=== PATIENT | male | born 1995 | race Caucasian/White ===

== ENCOUNTER 2021-04-03 09:18 | Emergency (ER) | payer OTHER ==
[~2021-04-03] VITALS: Ht 180.3 cm; Wt 59.0 kg
[2021-04-03] MEDS ORDERED: ODEFSEY TABLET1 EACH (09:26)
== END 2021-04-03 12:21 | disposition home or self-care (01) ==
LOC: ER 09:18
DX: L02.416 Cutaneous abscess of left lower limb (principal); B95.61 Methicillin susceptible Staphylococcus aureus infection as the cause of diseases classified elsewhere

== ENCOUNTER 2021-05-28 19:45 | Emergency (ER) | payer OTHER ==
[~2021-05-28] VITALS: Ht 180.3 cm; Wt 59.0 kg
[~2021-05-28 19:45] MED LIST: ODEFSEY TABLET1 EACH
[2021-05-28] MEDS ORDERED: DICLOFENAC SODI75 MG PO (20:42)
[2021-05-28] MEDS ORDERED: BACTRIM DS TAB1 EACH PO (20:42)
== END 2021-05-28 20:56 | disposition home or self-care (01) ==
LOC: ER 19:45
DX: L02.415 Cutaneous abscess of right lower limb (principal)

== ENCOUNTER 2021-09-05 12:49 | Inpatient (IN) | payer OTHER ==
[~2021-09-05] VITALS: Ht 180.3 cm; Wt 59.0 kg
[~2021-09-05 12:49] MED LIST changes: +BACTRIM DS TAB1 EACH PO; +DICLOFENAC SODI75 MG PO
[2021-09-08] MEDS ORDERED: PROTONIX40 MG PO (07:26)
[2021-09-08] MEDS ORDERED: AMOX1TAB5 PO (07:26)
[2021-09-08] MEDS ORDERED: ULTRAM50 MG PO (07:31)
== END 2021-09-08 10:09 | disposition home or self-care (01) | DRG 343 ==
LOC: ER 12:49 → SURH 09-06 02:11
PROVIDERS: ADMIT Surgery; ATTEND Surgery
PROC: 0DTJ0ZZ Resection of Appendix, Open Approach (ICD-10-PCS; principal; 2021-09-06 07:00)
DX: K35.891 Other acute appendicitis without perforation, with gangrene (principal); Z20.822 Contact with and (suspected) exposure to COVID-19

== ENCOUNTER 2021-11-06 00:38 | Emergency (ER) | payer OTHER ==
[~2021-11-06] VITALS: Ht 180.3 cm; Wt 59.0 kg
[~2021-11-06 00:38] MED LIST changes: +AMOX1TAB5 PO; +PROTONIX40 MG PO; +ULTRAM50 MG PO
[2021-11-06] MEDS ORDERED: ZITHROMAX200 MG PO (02:14)
== END 2021-11-06 02:20 | disposition home or self-care (01) ==
LOC: ER 00:38
DX: J45.901 Unspecified asthma with (acute) exacerbation (principal); B20 Human immunodeficiency virus [HIV] disease; Z20.822 Contact with and (suspected) exposure to COVID-19

== ENCOUNTER 2022-03-24 14:21 | Emergency (ER) | payer OTHER ==
[~2022-03-24] VITALS: Ht 180.3 cm; Wt 59.0 kg
[~2022-03-24 14:21] MED LIST changes: +ZITHROMAX200 MG PO
[2022-03-24] MEDS ORDERED: ODEFSEY TABLET1 EACH PO (14:44)
== END 2022-03-24 19:13 | disposition home or self-care (01) ==
LOC: ER 14:21
DX: R10.9 Unspecified abdominal pain (principal)

== ENCOUNTER 2022-09-20 09:50 | Emergency (ER) | payer OTHER ==
[~2022-09-20] VITALS: Ht 180.3 cm; Wt 59.9 kg
[~2022-09-20 09:50] MED LIST changes: +ODEFSEY TABLET1 EACH PO
== END 2022-09-20 13:08 | disposition home or self-care (01) ==
LOC: ER 09:50
DX: L29.8 Other pruritus (principal); R21 Rash and other nonspecific skin eruption; F41.8 Other specified anxiety disorders

== ENCOUNTER 2023-01-03 11:03 | Emergency (ER) | payer OTHER ==
[~2023-01-03] VITALS: Ht 180.3 cm; Wt 63.5 kg
== END 2023-01-03 14:45 | disposition home or self-care (01) ==
LOC: ER 11:03
DX: J10.1 Influenza due to other identified influenza virus with other respiratory manifestations (principal); B34.9 Viral infection, unspecified; R53.81 Other malaise; Z20.822 Contact with and (suspected) exposure to COVID-19; Z21 Asymptomatic human immunodeficiency virus [HIV] infection status

== ENCOUNTER 2023-01-05 02:11 | Emergency (ER) | payer OTHER ==
[~2023-01-05] VITALS: Ht 180.3 cm; Wt 63.5 kg
== END 2023-01-05 05:04 | disposition home or self-care (01) ==
LOC: ER 02:11
DX: J06.9 Acute upper respiratory infection, unspecified (principal)

== ENCOUNTER 2023-06-25 08:36 | Emergency (ER) | payer OTHER ==
[~2023-06-25] VITALS: Ht 170.2 cm; Wt 63.0 kg
[2023-06-25 09:28] LABS: HEMATOCRIT 41.4 % (39.0-48.0); HEMOGLOBIN 14.5 g/dL (13-16.00); MEAN CELL VOLUME 87.2 fL (80.0-100.00); MEAN CORPUSCULAR HEMOGLOBIN 30.5 pg (27.00-32.0); MEAN CORPUSCULAR HGB CONC 34.9 g/dl (32.0-36.0); PLATELET COUNT 268 K/uL (150-450); RED BLOOD COUNT 4.74 M/uL (4.00-6.00); RED CELL DISTRIBUTION WIDTH 13.1 % (11.5-14.5)
[2023-06-25 09:43] LABS: PH,URINE 6.5; URINE BLOOD LARGE; URINE GLUCOSE NEGATIVE (NEGATIVE); URINE LEUKOCYTE NEGATIVE; URINE NITRATE POSITIVE
[2023-06-25 09:49] LABS: URINE APPEARANCE BLOODY; URINE BILIRRUBIN MODERATE (NEGATIVE); URINE COLOR RED; URINE PROTEIN 100 (NEGATIVE)
[2023-06-25 09:50] LABS: URINE MUCUS MODERATE; URINE RBC LOADED /HPF
[2023-06-25 09:51] LABS: URINE WBC 0-2 /hpf
[2023-06-25 09:52] LABS: URINE EPITHELIAL CELLS 0-4 /HPF
[2023-06-25 09:53] LABS: URINE BACTERIA FEW
[2023-06-25 10:02] LABS: CALCIUM 9.1 mg/dL (8.5-10.1); CREATININE SERUM 1.14 mg/dL (0.70-1.30); GFR 75.94; POTASSIUM 3.9 mEq/L (3.5-5.1)
== END 2023-06-25 11:09 | disposition home or self-care (01) ==
LOC: ER
PROVIDERS: General Practice
DX: N34.2 Other urethritis (principal); B20 Human immunodeficiency virus [HIV] disease

== ENCOUNTER 2023-12-26 09:14 | Emergency (ER) | payer OTHER ==
[~2023-12-26] VITALS: Ht 180.3 cm; Wt 59.0 kg
[2023-12-26] MEDS ORDERED: RINGERS SOLUTION,LACTATED 1,000 ML IV STA (10:01)
[2023-12-26] MEDS ORDERED: 0.9 % SODIUM CHLORIDE 1,000 ML IV STA (10:02)
[2023-12-26] MEDS ORDERED: FAMOtidine 10 MG/ML (4ML VIAL) IV STA (10:04)
[2023-12-26] MEDS ORDERED: ONDANSETRON HCL 2 MG/ML VIAL IV ONE (10:15)
[2023-12-26 10:32] LABS: HEMATOCRIT 38.7 % (39.0-48.0); HEMOGLOBIN 13.8 g/dL (13-16.00); MEAN CORPUSCULAR HEMOGLOBIN 30.7 pg (27.00-32.0); MEAN CORPUSCULAR HGB CONC 35.7 g/dl (32.0-36.0); PLATELET COUNT 240 K/uL (150-450); RED BLOOD COUNT 4.51 M/uL (4.00-6.00); RED CELL DISTRIBUTION WIDTH 12.8 % (11.5-14.5)
[2023-12-26 10:53] LABS: ALBUMIN 3.7 gm/dL (3.4-5.0); BILIRUBIN TOTAL 0.5 mg/dL (0.3-1.2); BILIRUBIN,CONJUGATED 0.14 mg/dL (0.0-0.2); BILIRUBIN,UNCONJUGATED 0.36 mg/dL (0.0-0.6); CALCIUM 8.8 mg/dL (8.5-10.1); CREATININE SERUM 1.23 mg/dL (0.70-1.30); GFR 69.57; POTASSIUM 3.79 mEq/L (3.5-5.1); TOTAL PROTEIN 7.7 gm/dL (6.4-8.2)
[2023-12-26] MEDS ORDERED: METRONIDAZOLE/SODIUM CHLORIDE 500 MG/100 ML PIGGYBACK IV ONE (14:30)
[2023-12-26] MEDS ORDERED: CIPROFLOXACIN IN 5 % DEXTROSE 200 MG/100 ML PIGGYBAG IV ONE (14:30)
== END 2023-12-26 14:37 | disposition home or self-care (01) ==
LOC: ER 09:15
PROVIDERS: General Practice
DX: K52.89 Other specified noninfective gastroenteritis and colitis (principal); Z20.822 Contact with and (suspected) exposure to COVID-19

== ENCOUNTER → 2024-03-08 | Emergency (ER) | payer OTHER ==
[~2024-03-08] VITALS: Ht 180.3 cm; Wt 61.2 kg
[~2024-03-08] MED LIST changes: +FAMOTIDINE/PF 20 MG/2 ML VIAL IV PUSH STA; +FAMOTIDINE/PF 20 MG/2 ML VIAL ONE
[2024-03-08 11:32] LABS: HEMOGLOBIN 12.7 g/dL (13-16.00); MEAN CELL VOLUME 87.9 fL (80.0-100.00); MEAN CORPUSCULAR HEMOGLOBIN 30.1 pg (27.00-32.0); MEAN CORPUSCULAR HGB CONC 34.2 g/dl (32.0-36.0); PLATELET COUNT 272 K/uL (150-450); RED BLOOD COUNT 4.21 M/uL (4.00-6.00); RED CELL DISTRIBUTION WIDTH 13.3 % (11.5-14.5)
[2024-03-08 12:12] LABS: ALBUMIN 3.7 gm/dL (3.4-5.0); BILIRUBIN TOTAL 0.47 mg/dL (0.3-1.2); CALCIUM 9.1 mg/dL (8.5-10.1); CREATININE SERUM 1.06 mg/dL (0.70-1.30); GFR 82.6; GLOBULINA 3.8 G/DL (2.4-3.5); POTASSIUM 4.38 mEq/L (3.5-5.1); TOTAL PROTEIN 7.5 gm/dL (6.4-8.2)
== END | disposition home or self-care (01) ==
LOC: ER 09:26
PROVIDERS: General Practice
DX: K29.70 Gastritis, unspecified, without bleeding (principal)

== ENCOUNTER 2024-04-06 04:31 | Emergency (ER) | payer OTHER ==
[~2024-04-06] VITALS: Ht 180.3 cm; Wt 61.2 kg
[~2024-04-06 04:31] MED LIST changes: -FAMOTIDINE/PF 20 MG/2 ML VIAL IV PUSH STA; -FAMOTIDINE/PF 20 MG/2 ML VIAL ONE
[2024-04-06] MEDS ORDERED: PROMETHAZINE HCL 50 MG/ML AMPUL IM STA (05:30)
[2024-04-06] MEDS ORDERED: HYOSCYAMINE SULFATE 0.125 MG TAB.SUBL SL STA (05:30)
[2024-04-06] MEDS ORDERED: LACTOBACILLUS ACIDOPHILUS 1 CAP CAP PO STA (05:32)
[2024-04-06] MEDS ORDERED: FAMOTIDINE/PF 20 MG/2 ML VIAL IV PUSH STA (05:32)
[2024-04-06] MEDS ORDERED: POTASSIUM CHLORIDE/NACL 0.9% 1,000 ML IV ONE (05:45)
[2024-04-06 05:55] LABS: HEMATOCRIT 38.4 % (39.0-48.0); HEMOGLOBIN 13.5 g/dL (13-16.00); MEAN CELL VOLUME 87.7 fL (80.0-100.00); MEAN CORPUSCULAR HEMOGLOBIN 30.8 pg (27.00-32.0); MEAN CORPUSCULAR HGB CONC 35.1 g/dl (32.0-36.0); PLATELET COUNT 261 K/uL (150-450); RED BLOOD COUNT 4.37 M/uL (4.00-6.00)
[2024-04-06 06:20] LABS: PH,URINE >= 9.0 (5.0-8.0); URINE APPEARANCE Clear; URINE BILIRRUBIN Negative (NEGATIVE); URINE BLOOD Negative; URINE COLOR Dark Yellow; URINE GLUCOSE Negative (NEGATIVE); URINE LEUKOCYTE Negative; URINE NITRATE Negative; URINE PROTEIN 30 (NEGATIVE)
[2024-04-06 06:22] LABS: URINE BACTERIA 7.5 uL (0.0-1933); URINE EPITHELIAL CELLS 2.1 uL (0.0-38.8); URINE RBC 16.3 uL (0.0-20.8); URINE WBC 4.4 uL (0.0-23.2)
[2024-04-06 06:26] LABS: URINE KETONE 40 (NEGATIVE)
[2024-04-06 06:41] LABS: CALCIUM 8.9 mg/dL (8.5-10.1); CREATININE SERUM 1.18 mg/dL (0.70-1.30); GFR 72.98; POTASSIUM 4.21 mEq/L (3.5-5.1)
[2024-04-06] MEDS ORDERED: CIPROFLOXACIN IN 5 % DEXTROSE 400 MG/200 ML PIGGYBAG IV STA (07:32)
[2024-04-06] MEDS ORDERED: ONDANSETRON HCL 2 MG/ML VIAL IV ONE (14:00)
== END 2024-04-06 14:13 | disposition home or self-care (01) ==
LOC: ER 04:32
PROVIDERS: General Practice
DX: R19.7 Diarrhea, unspecified (principal); R11.0 Nausea

== ENCOUNTER 2024-09-10 09:02 | Emergency (ER) | payer OTHER ==
[~2024-09-10] VITALS: Ht 180.3 cm; Wt 62.1 kg
[2024-09-10] MEDS ORDERED: FAMOtidine 10 MG/ML (4ML VIAL) IV ONE (10:45)
[2024-09-10] MEDS ORDERED: METRONIDAZOLE/SODIUM CHLORIDE 500 MG/100 ML PIGGYBACK IV ONE ×2 (10:45→10:51)
[2024-09-10] MEDS ORDERED: CIPROFLOXACIN IN 5 % DEXTROSE 400 MG/200 ML PIGGYBAG IV ONE ×2 (10:45→10:50)
[2024-09-10] MEDS ORDERED: 0.9 % SODIUM CHLORIDE 1,000 ML IV ONE (10:45)
[2024-09-10] MEDS ORDERED: ONDANSETRON HCL 2 MG/ML VIAL IV ONE (10:45)
[2024-09-10] MEDS ORDERED: ONDANSETRON HCL 2 MG/ML VIAL ONE (10:50)
[2024-09-10] MEDS ORDERED: FAMOTIDINE/PF 20 MG/2 ML VIAL ONE (10:51)
[2024-09-10 11:34] LABS: PH,URINE 5.5 (5.0-8.0); URINE APPEARANCE Clear; URINE BILIRRUBIN Negative (NEGATIVE); URINE BLOOD Negative; URINE COLOR Yellow; URINE GLUCOSE Negative (NEGATIVE); URINE KETONE Negative (NEGATIVE); URINE LEUKOCYTE Trace; URINE NITRATE Negative; URINE PROTEIN Negative (NEGATIVE)
[2024-09-10 11:38] LABS: URINE BACTERIA 13.4 uL (0.0-1933); URINE EPITHELIAL CELLS 3.4 uL (0.0-38.8); URINE WBC 11.8 uL (0.0-23.2)
[2024-09-10 11:42] LABS: ALBUMIN 4.1 gm/dL (3.4-5.0); BILIRUBIN TOTAL 0.47 mg/dL (0.3-1.2); CALCIUM 9.2 mg/dL (8.5-10.1); CREATININE SERUM 1.14 mg/dL (0.70-1.30); GFR 75.42; GLOBULINA 3.9 G/DL (2.4-3.5); POTASSIUM 4.38 mEq/L (3.5-5.1)
[2024-09-10 11:44] LABS: URINE CAST 0.29 uL (0.0-1.40)
[2024-09-10 11:58] LABS: HEMATOCRIT 39.9 % (39.0-48.0); HEMOGLOBIN 13.8 g/dL (13-16.00); MEAN CORPUSCULAR HEMOGLOBIN 30.5 pg (27.00-32.0); MEAN CORPUSCULAR HGB CONC 34.6 g/dl (32.0-36.0); PLATELET COUNT 276 K/uL (150-450); RED BLOOD COUNT 4.54 M/uL (4.00-6.00); RED CELL DISTRIBUTION WIDTH 12.7 % (11.5-14.5)
[2024-09-10] MEDS ORDERED: CHOLESTYRAMINE/ASPARTAME LIGHT 4 G/PKT PACKET PO ONE (12:15)
[2024-09-10] MEDS ORDERED: PEPCID AC20 MG PO (12:18)
[2024-09-10] MEDS ORDERED: ZOFRAN8 MG PO (12:18)
[2024-09-10] MEDS ORDERED: PROBIOTIC1 EAC2 PO (12:18)
[2024-09-10] MEDS ORDERED: LEVSIN0.125 MG PO (12:18)
[2024-09-10] MEDS ORDERED: HYOSCYAMINE SULFATE 0.125 MG TAB.SUBL SL ONE (12:30)
[2024-09-10] MEDS ORDERED: HYOSCYAMINE SULFATE 0.125 MG TAB.SUBL ONE (12:45)
== END 2024-09-10 12:50 | disposition home or self-care (01) ==
LOC: ER 09:04
PROVIDERS: General Practice
DX: R19.7 Diarrhea, unspecified (principal); B20 Human immunodeficiency virus [HIV] disease